=== PATIENT | female | born 1990 | race Caucasian/White ===

== ENCOUNTER 2016-05-05 15:59 | Emergency (ER) | payer BC ==
[~2016-05-05] VITALS: Ht 160 cm; Wt 119.9 kg
[~2016-05-05 15:59] MED LIST: APRE1TAB3 PO; ASPI81TA28 PO; CLOB0.0512 TOP; CZR25 PO; DXY50 PO; IMPLANON IMPLANT; METF-384 PO; PRLSR20 PO; [UNRECOGNIZED DRUG - CODE] TOP
[2016-05-05 16:20] VITALS: TEMP 37.1; Ht 160 cm; Wt 119.9 kg
--- NOTE | 2016-05-05 17:13 | DIAGNOSTIC IMAGING REPORT ---
CHEST 2 VIEWS ROUTINE CLINICAL HISTORY: cough dyspnea COMPARISON STUDY: 03/12/2016 FINDINGS: The bones soft tissues and hemidiaphragms are normal. The cardiomediastinal silhouette is normal. The lungs are clear. The pulmonary vasculature is normal. IMPRESSION: Negative chest. Electronically signed by: Ciaran Graham M.D. 05/05/2016 5:12 PM Dictated Date/Time: 05/05/2016 5:11 PM
[2016-05-05] MEDS ORDERED: ALBI1INJ PO (18:29)
[2016-05-05] MEDS ORDERED: ETON1IMP2 INTRAD (18:29)
[2016-05-05] MEDS ORDERED: GLCSR10 PO (18:29)
[2016-05-05] MEDS ORDERED: ALBUT/IPRATROP 3MG/0.5MG NEB 3 ML VIAL INH STA ×2 (18:44→19:59)
[2016-05-05] MEDS ORDERED: METHYLPREDNISOLONE 125 MG VIAL IV STA (18:44)
[2016-05-05 19:16] LABS: HEMATOCRIT 42.6 % (37-47); MEAN CELL VOLUME 80.7 fL (80-100); MEAN CORPUSCULAR HEMOGLOBIN 28.4 pg (25-34); MEAN CORPUSCULAR HGB CONC 35.2 g/dl (32-36); PLATELET COUNT 223 K/uL (130-400); RED BLOOD COUNT 5.28 M/uL (4.2-5.4); WHITE BLOOD COUNT 9.64 K/uL (4.8-10.8)
[2016-05-05 19:25] LABS: INR 0.9 (0.9-1.1); PROTHROMBIN TIME (PATIENT) 10.1 SECONDS (9.0-12.0)
[2016-05-05 19:32] LABS: CALCIUM 9.3 mg/dl (8.5-10.1); CREATININE 0.68 mg/dl (0.60-1.20); POTASSIUM 3.6 mmol/L (3.5-5.1)
[2016-05-05] MEDS ORDERED: IPRASOL4 INH (21:04)
[2016-05-05] MEDS ORDERED: PRED50TA PO (21:04)
--- NOTE | 2016-05-05 21:05 | EMERGENCY ROOM VISIT NOTE ---
ED Visit Note First contact with patient: 18:15 CHIEF COMPLAINT: Cough, wheezing and shortness of breath times several weeks HISTORY OF PRESENT ILLNESS: Patient is a 25-year-old white female with past medical history significant for hypertension, diabetes and asthma who presents to emergency department for evaluation of increased wheezing and shortness of breath. She states that she was here "one month ago" for similar symptoms and states that she never got better. Review of her old records actually show that she was here March 12 for influenza-like symptoms. Nonetheless, the patient reports that despite treatment recommended here she has had cough, congestion, wheezing and shortness of breath. She was seen at a [facility] last week and started on doxycycline. She is using an albuterol MDI 2 puffs every 4 hours, but notes worsening wheezing, and tightness and soreness across her back. She does not use any additional medications for her symptoms. She has not had a fever. She does have a history of asthma. She denies any anterior chest pain. She states that her cough is dry and nonproductive. The patient denies tobacco use. REVIEW OF SYSTEMS: Review of systems as per HPI. All other systems reviewed were negative. 10 systems reviewed. PMH: Electronic medical records are reviewed and summarized as above/below. See Problem List. SOCIAL HISTORY: Patient lives at home. Nonsmoker. PHYSICAL EXAM: Vital Signs: Reviewed Nurse's notes. Patient is afebrile. She is slightly tachycardic with heart rate of 120 beats per minute in triage, was rechecked at the time of exam is 108 beats per minute. Oxygen saturation between 94 and 96% on room air. MENTAL STATUS: Patient is a well-appearing obese 25-year-old white female who is awake and alert and in no acute distress. No increased work of breathing. No conversational dyspnea. HEAD: Atraumatic, without temporal or scalp tenderness. EYES: PERRL, EOMI, no discharge or injection. EARS: Tympanic membranes intact, not inflamed, have normal contour. External canals clear. NOSE: Nares patent, turbinates edematous and boggy with clear rhinorrhea. MOUTH: Mucous membranes moist, no lesions, tongue and gums appear normal. THROAT: No pharyngeal injection, exudates, or tonsillar hypertrophy. Airway is patent. NECK: Supple, nontender, no lymphadenopathy. HEART: Regular rate and rhythm without murmurs, ectopy, gallops, or rubs. LUNGS: Breath sounds are equal bilaterally, with expiratory wheezes noted posteriorly over both lung weathers. No accessory muscle use or retractions.. SKIN: Normal. NEUROLOGICAL: Sensory and motor functions grossly intact. Normal gait. EMERGENCY DEPARTMENT COURSE: The patient was seen and assessed as above. Her old records were reviewed. Chest x-ray had been performed prior to my evaluation the patient and was interpreted by the radiologist as unremarkable. IV lock was initiated. Laboratory studies were collected. She received a DuoNeb treatment 2. She was given Solu-Medrol 125 mg IV. EKG was performed and was as noted below. Laboratory studies including CBC, coags, BNP, point-of- care d-dimer and [id number] troponin were collected. EKG noted a normal sinus rhythm at 99 beats per minute. No ectopy or acute ischemic changes. No changes on review of prior EKGs. Laboratory studies did not demonstrate leukocytosis, anemia or significant electrolyte imbalance. Troponin is negative 1 with symptoms greater than 24 hours. Coags are normal and d-dimer was not elevated, given this, further workup for PE was not pursued. The patient was reassessed after the initial DuoNeb treatment and had slight improvement. She responded better to the second nebulizer treatment and lung sounds were much clearer. The patient appears to have a viral URI which has exacerbated her underlying asthma. She does not have any evidence for focal consolidation or pneumonia on exam. She is are the only course of antibiotics which she should continue. She has an albuterol inhaler, but was given a prescription for DuoNeb treatments as she does have access to a nebulizer machine. She was also placed on a short course of oral prednisone but was advised to follow-up closely with her primary care provider as this may cause her blood sugar should become transiently elevated. Differential diagnosis includes acute myocardial infarction, acute coronary syndrome, myocarditis, pericarditis, pericardial effusions /tamponade, esophageal perforation, pulmonary embolism, pneumonia, pneumothorax, cardiomyopathy, congestive heart failure, anemia , COPD/asthma exacerbation, musculoskeletal, anxiety, costochondritis. The patient was discharged home into the care of her significant other in good condition. Vital signs are stable at that time. CHEST 2 VIEWS ROUTINE CLINICAL HISTORY: cough dyspnea COMPARISON STUDY: 03/12/2016 FINDINGS: The bones soft tissues and hemidiaphragms are normal. The cardiomediastinal silhouette is normal. The lungs are clear. The pulmonary vasculature is normal. IMPRESSION: Negative chest. Problem List Medical Problems: (1) Abdominal pain, vomiting, and diarrhea Status: Resolved (2) Asthma Status: Chronic (3) Depressive Disorder Nec Status: Chronic (4) Diabetes Status: Chronic (5) Dog bite Status: Resolved (6) Dog bite of finger Status: Resolved (7) Esophageal Reflux Status: Chronic (8) Foot pain Status: Resolved (9) Heel spur Status: Resolved (10) Hypertension Status: Chronic (11) Influenza-like symptoms Status: Resolved (12) Laceration of third finger, right Status: Resolved (13) Plantar fasciitis Status: Resolved Surgical Problems: (1) History of wisdom tooth extraction Status: Resolved Current/Historical Medications Scheduled Albiglutide (Tanzeum), 30 MG PO WK Apremilast (Otezla), 30 MG PO BID Aspirin (Aspirin Ec), 81 MG PO DAILY Clobetasol Propionate (Clobex), 1 SPRAY TOP UD Clobetasol Propionate (Clobex), 1 APPLN TOP PRN UD Doxycycline Hyclate (Doxycycline Hyclate), 100 MG PO BID Etonogestrel (Nexplanon), 1 DOSE INTRAD [id number] Glipizide (Glipizide ER), 10 MG PO DAILY Losartan Potassium (Losartan Potassium), 25 MG PO DAILY Metformin Hcl (Glucophage), 1,000 MG PO BID Omeprazole (Prilosec), 40 MG PO DAILY Prednisone (Prednisone), 50 MG PO DAILY Scheduled PRN Ipratropium-Albuterol (Duoneb), 1 TREATMENT INH Q4H PRN for Wheezing Allergies Coded Allergies: No Known Allergies (Verified , 05/05/16) Vital Signs Date Time Temp Pulse Resp B/P Pulse Ox O2 Delivery O2 Flow Rate FiO2 05/05/16 21:13 110 20 115/89 93 05/05/16 19:14 114 05/05/16 19:06 100 20 123/84 100 Nebulizer 9.0 05/05/16 16:58 97 Room Air 05/05/16 16:20 37.1 120 20 177/99 96 Room Air Laboratory Results 05/05/16 18:55 05/05/16 18:55 Test 05/05/16 18:55 05/05/16 19:12 Red Blood Count 5.28 M/uL (4.2-5.4) Mean Corpuscular Volume 80.7 fL (80-100) Mean Corpuscular Hemoglobin 28.4 pg (25-34) Mean Corpuscular Hemoglobin Concent 35.2 g/dl (32-36) RDW Standard Deviation 38.0 fL (36.4-46.3) RDW Coefficient of Variation 12.9 % (11.5-14.5) Mean Platelet Volume 9.0 fL (7.4-10.4) Prothrombin Time 10.1 SECONDS (9.0-12.0) Prothromb Time International Ratio 0.9 (0.9-1.1) Activated Partial Thromboplast Time 24.8 SECONDS (21.0-31.0) Partial Thromboplastin Ratio 1.0 Anion Gap 12.0 mmol/L (3-11) Est Creatinine Clear Calc Drug Dose 157.1 ml/min Estimated GFR () 139.9 Estimated GFR (Non- 120.7 BUN/Creatinine Ratio 14.0 (10-20) Calcium Level 9.3 mg/dl (8.5-10.1) Bedside D-Dimer 167 ng/mlFEU (0-450) Bedside Troponin I 0.000 ng/ml (0-0.045) Medications Administered Medications (Trade) Dose Ordered Sig/Stephie Route Start Time Stop Time Status Last Admin Dose Admin Albuterol/ Ipratropium (Duoneb) 3 ml NOW STAT INH 05/05/16 18:44 05/05/16 18:46 DC 05/05/16 19:03 3 ML Methylprednisolone Sodium Succinate (Solu-Medrol IV) 125 mg NOW STAT IV 05/05/16 18:44 05/05/16 18:46 DC 05/05/16 19:03 125 MG Albuterol/ Ipratropium (Duoneb) 3 ml NOW STAT INH 05/05/16 19:59 05/05/16 20:00 DC 05/05/16 20:20 3 ML Departure Information Impression Primary Impression: Asthmatic bronchitis with acute exacerbation Prescriptions Ipratropium-Albuterol (DUONEB) 3 Ml Nebu 1 TREATMENT INH Q4H Y for Wheezing, #1 BOX Prov: Nikia Olivo PA 05/05/16 Prednisone (Prednisone) 50 Mg Tab 50 MG PO DAILY for 4 Days, #4 TAB Prov: Nikia Olivo PA 05/05/16 Referrals Kale Salgado M.D. (MEDICAL) (PCP) Patient Instructions My [facility] Additional Instructions Finished doxycycline as previously prescribed. Prednisone 50mg: Once daily until the prescription is finished. It is best to take this earlier in the day as some patients note occasional difficulty falling asleep when taken in the late evening. DuoNeb treatment: One by a bee and nebulizer every 4 hours as needed for cough, wheezing or shortness of breath. Ibuprofen(Motrin, Advil) may be used for fever or pain. Use 600mg every six hours as needed. Take with food. Avoid using more than 2400mg in a 24 hour period. Do not use 2400mg per day for more than three consecutive days without physician direction. Prolonged inappropriate use can lead to stomach upset or ulcers. This is available over the counter and typically comes in 200mg tablets. (AND/OR) Acetaminophen(Tylenol) may be used for fever or pain. Use 1000mg every eight hours as needed. Avoid using more than 3000mg in a 24 hour period. This is available over the counter. Controlling your fever with Tylenol and Ibuprofen as above will make you feel better. Rest and drink plenty of fluids. Avoid strenuous activity until your symptoms resolve and your breathing returns to normal. Continue current medications. Return to the ER for chest pain, difficulty breathing, persistent fevers, vomiting, worsening of your condition, or as needed. Follow-up with your primary care physician in 2-3 days for recheck.
[2016-05-05 21:13] VITALS: BP 115/89; PULSE 110; O2SAT 93
== END 2016-05-05 21:14 | disposition home or self-care (01) ==
LOC: C.EDB 16:00 → C.EDD 21:14
DX: J45.901 Unspecified asthma with (acute) exacerbation (principal); I10 Essential (primary) hypertension; E11.9 Type 2 diabetes mellitus without complications; K21.9 Gastro-esophageal reflux disease without esophagitis; Z79.82 Long term (current) use of aspirin; Z79.84 Long term (current) use of oral hypoglycemic drugs; Z79.899 Other long term (current) drug therapy

== ENCOUNTER 2019-12-13 07:22 | Inpatient (IN) ==
[2019-12-13] MEDS ORDERED: OXYTOCIN 30 UNITS/500 ML BAG IV PRN (09:28)
[2019-12-13] MEDS ORDERED: PENICILLIN G POTASSIUM 6 MU in DEXTROSE 5% 250 ML IV STA (09:39)
[2019-12-13] MEDS ORDERED: DINOPROSTONE 10 MG INSERT PV ONE (09:45)
--- NOTE | 2019-12-13 09:48 | Obstetrical Progress Note ---
Date of Service December 13, 2019 Assessment & Plan Admission and Anticipated Discharge Date Admission Date: December 13, 2019 Subjective Admit Note 29 F P1001 at 39.2 wks admitted for IOL for chronic hypertension, obesity, DM2 on insulin pump. Her GBS is positive and Covid is negative. FHT Cat 1. No contractions. Blood sugar this AM was 100. Sugars have been managed by her and MFM and have been OK. Last delivery over 10 years ago was uncomplicated. Cervix closed/50/-3/vertex/posterior/intact. Will start with cervical ripening with Cervidil. Results & Data ([facility]) Vital Signs (Past 12 Hours) Vital Signs Temp Pulse Resp BP 12/13/19 07:58 36.7 C 20 12/13/19 07:36 104 H 139/90
[2019-12-13 09:58] LABS: Hematocrit (blood only) 33.9 % (37-47); Hemoglobin 11.2 g/dL (12.0-16.0); Mean Corpuscular Hemoglobin 26.3 pg (25-34); Mean Corpuscular Volume 79.6 fL (80-100); Mean Platelet Volume 9.1 fL (7.4-10.4); Platelet Count 161 K/uL (130-400); RDW Coefficient of Variation 16.6 % (11.5-14.5); RDW Standard Deviation 47.8 fL (36.4-46.3); Red Blood Count 4.26 M/uL (4.2-5.4); White Blood Count 10.44 K/uL (4.8-10.8)
--- NOTE | 2019-12-13 10:12 | Obstetrical Progress Note ---
Date of Service December 13, 2019 Assessment & Plan Admission and Anticipated Discharge Date Admission Date: December 13, 2019 Physical Exam Constitutional: WD/WN, vitals as above comfortable Cervidil 10 mg placed vaginally Results & Data ([facility]) Vital Signs (Past 12 Hours) Vital Signs Temp Pulse Resp BP 12/13/19 07:58 36.7 C 20 12/13/19 07:36 104 H 139/90
[2019-12-13] MEDS ORDERED: Nursing to Pharmacy Communication SCH (18:15)
[2019-12-13] MEDS ORDERED: GLUCOSE 40% GEL 15 GM TUBE PO PRN (18:45)
[2019-12-13] MEDS ORDERED: CARBOHYDRATES FOR HYPOGLYCEMIA PO PRN (18:45)
[2019-12-13] MEDS ORDERED: INSULIN HUMAN REGULAR SC PRN (18:45)
[2019-12-13] MEDS ORDERED: HumuLIN-R 10 ML VIAL SC PRN (18:45)
[2019-12-13] MEDS ORDERED: DEXTROSE 50% 50 ML SYRINGE IV PRN (18:45)
[2019-12-13] MEDS ORDERED: GLUCAGON FOR INJ 1 MG VIAL SQ PRN (18:45)
[2019-12-13] MEDS ORDERED: GLUCOSE 10 TABS/TUBE PO PRN (18:45)
[2019-12-13] MEDS: LABETALOL HCL 100 MG TAB PO SCH (21:00)
[2019-12-13] MEDS ORDERED: INSULIN REGULAR PUMP SCH (21:00)
--- NOTE | 2019-12-13 22:29 | Obstetrical Progress Note ---
Date of Service December 13, 2019 Assessment & Plan Admission and Anticipated Discharge Date Admission Date: December 13, 2019 Physical Exam Constitutional: WD/WN, vitals as above comfortable Genitourinary: Manual OB Exam: + cervical dilation fingertip, + cervical effacement 50% and + station high OB Exam Monitor Tracing: + external FHT monitor used and + external uterine monitor used Cervidil pulled out will start PO Cytotec every 4 hours Results & Data ([facility]) Vital Signs (Past 12 Hours) Vital Signs Temp Pulse Resp BP 12/13/19 19:29 89 123/67 12/13/19 19:28 37.0 C 18 12/13/19 14:47 85 143/83 H 12/13/19 14:44 36.7 C 16 12/13/19 10:55 36.7 C 86 20 122/80
[2019-12-14] MEDS: miSOPROStoL 50 MCG TAB PO SCH ×3 (00:02→20:34)
[2019-12-14] MEDS ORDERED: OXYTOCIN 30 UNITS/500 ML BAG IV PRN (08:32)
--- NOTE | 2019-12-14 08:32 | Obstetrical Progress Note ---
Date of Service December 14, 2019 Assessment & Plan Admission and Anticipated Discharge Date Admission Date: December 13, 2019 Subjective Pt doing well Induction for obesity received Cytotec and Cervidil VE; /post/ kilpatrick bulb place in cervix with 30 cc Starting Pitocin Results & Data ([facility]) Vital Signs (Past 12 Hours) Vital Signs Temp Pulse Resp BP 12/14/19 07:03 37.1 C 89 20 134/72 12/14/19 03:20 36.5 C 76 16 121/72 12/13/19 23:44 36.7 C 85 16 130/71
[2019-12-14] MEDS: LACTATED RINGER'S 1,000 ML IV PRN ×3 (08:58→23:27)
[2019-12-14] MEDS: LABETALOL HCL 100 MG TAB PO SCH ×2 (09:07→20:36)
[2019-12-14] MEDS ORDERED: ePHEDrine sulfate 50 MG/ML AMP IV PRN (15:41)
[2019-12-14] MEDS ORDERED: fentaNYL citrate 100 MCG/2 ML VIAL ONE (15:41)
[2019-12-14] MEDS ORDERED: ONDANSETRON INJ 2 MG/ML 2 ML VIAL IV PRN (15:41)
[2019-12-14] MEDS ORDERED: BUPIVACAINE 0.25% 30 ML VIAL ONE (15:41)
[2019-12-14] MEDS ORDERED: ePHEDrine sulfate 50 MG/ML AMP ONE (15:41)
[2019-12-14] MEDS ORDERED: DiphenhydrAMINE HCL 50 MG/ML VIAL IV PRN (15:41)
[2019-12-14] MEDS ORDERED: NALOXONE HCL 1 MG in SODIUM CHLORIDE 0.9% 1000ML 1,000 ML IV PRN (15:41)
[2019-12-14] MEDS ORDERED: NALOXONE HCL 0.4 MG/1 ML VIAL/CARP IV PRN (15:41)
[2019-12-14] MEDS ORDERED: PROMETHAZINE HCL 25 MG in SODIUM CHLORIDE 0.9% 50 ML IV PRN (15:41)
--- NOTE | 2019-12-14 15:41 | Anesthesiology Consultation ---
Date of Service December 14, 2019 Assessment & Plan ASA ASA3 Proposed Anesthesia Anesthesia Type: Labor Epidural Risk / Benefits Reviewed With: PT / POA / Parent / Guardian, Accepts Plan and Informed Consent Obtained History Height/Weight Height: 5 ft 3 in Weight: 159.211 kg Allergies Allergy/AdvReac Type Severity Reaction Status Date / Time No Known Allergies Allergy Verified 10/05/18 22:12 Medications Home Medications Medication Instructions Recorded Confirmed Last Taken clobetasol [Clobex] 1 applic TOPICAL BID PRN 10/05/18 12/13/19 Unknown clobetasol [Clobex] 1 applic TOPICAL DAILY PRN 10/05/18 12/13/19 Unknown fluticasone propionate 2 spray INTRANASAL DAILY PRN 10/05/18 12/13/19 Unknown ipratropium bromide [Atrovent HFA] 1 puff INHALATION QID PRN 10/05/18 12/13/19 Unknown labetalol 100 mg PO BID 10/05/18 12/13/19 12/13/19 06:00 metformin 1,000 mg PO BID 10/05/18 12/13/19 12/13/19 06:00 albuterol See Rx Instructions .ROUTE 12/13/19 12/13/19 Unknown .COMPLEX PRN aspirin [Baby Aspirin] 81 mg PO DAILY 12/13/19 12/13/19 12/12/19 22:00 cyanocobalamin (vitamin B-12) 1,000 mcg SUBLINGUAL DAILY 12/13/19 12/13/19 12/13/19 06:00 [Vitamin B-12] ferrous sulfate [iron] 325 mg PO BID 12/13/19 12/13/19 12/13/19 06:00 insulin regular human [Novolin R 2.2 unit SUBCUT BOLUS 12/13/19 12/13/19 12/13/19 06:00 PenFill] prenat.vits,rosas,[id number] 1 tab PO DAILY 12/13/19 12/13/19 12/13/19 06:00 [ Vitamin] Active Medications Generic Name Dose Route Start Last Admin Trade Name Freq PRN Reason Stop Dose Admin Lactated Ringer's 1,000 mls @ 125 mls/hr 12/13/19 09:28 12/14/19 15:55 Lr IV 12/15/19 09:27 999 mls/hr .Q8H PRN Administration L&D Protocol Protocol Penicillin G Potassium 3 mu/ 106 mls @ 100 mls/hr 12/13/19 09:28 12/14/19 16:14 Dextrose IV 12/23/19 09:27 100 mls/hr Q4H PRN Administration Give until delivery Oxytocin 30 units in 500 mls @ 16 mls/hr 12/14/19 08:32 12/14/19 14:15 Pitocin IV 01/13/20 08:31 0.96 units/hr .Q24H PRN 16 mls/hr Labor Induction/Augmentation Titration Protocol 0.96 UNITS/HR Labetalol HCl 100 mg 12/13/19 21:00 12/14/19 09:07 Labetalol Hcl 100 Mg Tab PO 01/12/20 20:59 Not Given BID JUAN M Misoprostol 50 mcg 12/14/19 00:00 12/14/19 04:26 Misoprostol 50 Mcg Tab PO 01/13/20 00:00 50 mcg Q4 JUAN M Administration Past Medical History Medical History Anxiety No medications Asthma Inhalers PRN Chronic hypertension Patient currently takes PO Labetalol Depression No medications. Patient reports no problems with anxiet or depression during . Diabetes Type II DM - Currently takes Metformin and has an Insulin Pump - Novolin R Fatty liver GERD (gastroesophageal reflux disease) Tums Obesity Sleep apnea Patient uses CPAP machine at night. (spontaneous vaginal delivery) 05/22/2009 Exercise / Class Metabolic Activity II 4-5 Yardwork/Stairs/Walk up hill Past Family History Family History Other No significant family history Past Surgical History Surgical History History of endoscopic sinus surgery [place] teeth extracted Past Anesthesia History No Hx of Anesthesia Complications and No Family Hx of Anesthesia Complications History of PONV No Hx of PONV and No Hx of Motion Sickness Social History Smoking Status: Former smoker Do You Dip or Chew Tobacco: No Smoking End Date: 11/2014 Hx Alcohol Use: No Hx Substance Use: No Review of Systems denies fever/cough/ colds/ chest pain/ SOB/ KAREEM Constitutional: no fever and no chills Respiratory: no cough and no dyspnea denies KAREEM Cardiovascular: no chest pain and no dyspnea on exertion Physical Exam Vital Signs Last Vital Signs Temp 36.8 C 12/14/19 11:03 Pulse 75 12/14/19 16:22 Resp 18 12/14/19 14:08 BP 144/94 H 12/14/19 16:19 Pulse Ox 97 12/14/19 16:22 Constitutional + morbidly obese ENMT Mouth: no TMJ abnormality and no dentition abnormality Thyromental Distance: > or= 3.5 Finger Breadths Mallampati Class: II Neck neck extension not limited Respiratory normal respiratory effort; no respiratory distress Auscultation: lungs clear to auscultation bilaterally Cardiovascular Rate/Rhythm: regular rate and regular rhythm Neurologic moves all extremities Psychiatric Orientation: alert and oriented x 3 Testing Laboratory Results 12/13/19 09:43
[2019-12-14] MEDS ORDERED: fentaNYL 2MCG/ML ROPIV 1.25MG/ML 100 ML BAG EPI ONE (15:42)
[2019-12-14] MEDS: PENICILLIN G POTASSIUM 3 MU in DEXTROSE 5% 100 ML IV PRN ×3 (16:14→23:58)
--- NOTE | 2019-12-14 19:42 | Obstetrical Progress Note ---
Date of Service December 14, 2019 Assessment & Plan Admission and Anticipated Discharge Date Admission Date: December 13, 2019 Subjective Pt doing well FHR; CAT1 Ctx 2-3mins Pit 18Mu VE; 2-3/75/-[address] Attempted to AROM but pt was too uncomfortable despite epidural Results & Data ([facility]) Vital Signs (Past 12 Hours) Vital Signs Temp Pulse Resp BP Pulse Ox 12/14/19 19:37 71 99 12/14/19 19:36 96 H 161/70 H 12/14/19 19:32 83 100 12/14/19 19:27 75 99 12/14/19 19:22 72 99 12/14/19 19:19 71 140/85 12/14/19 19:17 72 100 12/14/19 19:12 74 99 12/14/19 19:07 36.9 C 78 18 99 12/14/19 19:05 76 141/87 H 12/14/19 19:02 73 99 12/14/19 18:57 71 98 12/14/19 18:52 75 99 12/14/19 18:50 68 147/85 H 12/14/19 18:47 71 97 12/14/19 18:42 73 98 12/14/19 18:37 75 97 12/14/19 18:34 71 131/71 12/14/19 18:32 69 97 12/14/19 18:27 68 96 12/14/19 18:25 66 94 12/14/19 18:22 66 96 12/14/19 18:19 68 130/71 12/14/19 18:17 63 96 12/14/19 18:12 71 96 12/14/19 18:07 69 96 12/14/19 18:04 70 18 127/68 12/14/19 18:02 69 96 12/14/19 17:57 73 96 12/14/19 17:52 70 97 12/14/19 17:50 70 131/75 12/14/19 17:47 69 96 12/14/19 17:42 75 96 12/14/19 17:37 73 95 12/14/19 17:34 75 18 126/71 12/14/19 17:32 75 96 12/14/19 17:27 71 97 12/14/19 17:22 85 97 12/14/19 17:19 76 156/98 H 12/14/19 17:17 87 96 12/14/19 17:12 75 96 12/14/19 17:07 77 97 12/14/19 17:04 71 16 143/90 H 12/14/19 17:02 74 96 12/14/19 16:57 77 95 12/14/19 16:52 71 96 12/14/19 16:47 70 97 12/14/19 16:46 74 155/91 H 12/14/19 16:42 75 96 12/14/19 16:39 74 157/94 H 12/14/19 16:37 76 96 12/14/19 16:34 85 156/91 H 12/14/19 16:32 89 98 12/14/19 16:31 76 163/87 H 12/14/19 16:27 86 98 12/14/19 16:24 73 148/91 H 12/14/19 16:22 75 97 12/14/19 16:19 73 144/94 H 12/14/19 16:17 78 100 12/14/19 16:14 81 152/92 H 12/14/19 16:12 80 156/79 H 99 12/14/19 16:10 79 144/101 H 12/14/19 16:08 71 154/96 H 12/14/19 16:07 70 100 12/14/19 16:06 80 154/93 H 12/14/19 16:04 36.7 C 71 18 147/91 H 12/14/19 16:02 88 99 12/14/19 15:57 79 100 12/14/19 14:08 100 H 18 135/86 12/14/19 13:06 78 20 154/91 H 12/14/19 12:01 78 20 139/82 12/14/19 11:03 36.8 C 78 20 144/88 H 12/14/19 10:24 74 20 134/69 12/14/19 09:03 85 20 124/58 L
[2019-12-14] MEDS ORDERED: Nursing to Pharmacy Communication SCH (21:30)
[2019-12-14] MEDS: fentaNYL 2MCG/ML ROPIV 1.25MG/ML 100 ML BAG EPI PRN (22:06)
--- NOTE | 2019-12-14 23:23 | Obstetrical Progress Note ---
Date of Service December 14, 2019 Assessment & Plan Admission and Anticipated Discharge Date Admission Date: December 13, 2019 Subjective Pt doing well FHR; CAT1 VE 2-3/50/-3 Ctx; 2-3mis Pit; 20Mu Pt tolerated exam poorly- Unable to AROM because of discomfort Pitocin turned off for now Results & Data ([facility]) Vital Signs (Past 12 Hours) Vital Signs Temp Pulse Resp BP Pulse Ox 12/14/19 23:17 76 98 12/14/19 23:12 80 97 12/14/19 23:07 79 98 12/14/19 23:04 70 135/71 12/14/19 23:02 72 97 12/14/19 22:57 76 97 12/14/19 22:52 73 95 12/14/19 22:49 82 132/66 12/14/19 22:47 74 96 12/14/19 22:42 74 96 12/14/19 22:37 91 H 98 12/14/19 22:34 74 129/67 12/14/19 22:32 76 96 12/14/19 22:27 74 96 12/14/19 22:22 72 96 12/14/19 22:20 73 136/72 12/14/19 22:17 84 96 12/14/19 22:12 80 96 12/14/19 22:07 76 97 12/14/19 22:04 75 137/73 12/14/19 22:02 97 H 98 12/14/19 21:57 75 96 12/14/19 21:52 74 96 12/14/19 21:49 73 18 126/69 12/14/19 21:47 72 97 12/14/19 21:42 73 96 12/14/19 21:37 76 96 12/14/19 21:36 73 134/76 12/14/19 21:32 75 96 12/14/19 21:27 77 97 12/14/19 21:24 37.1 C 18 12/14/19 21:22 73 98 12/14/19 21:19 74 136/82 12/14/19 21:17 76 98 12/14/19 21:15 82 89 L 12/14/19 21:12 96 H 96 12/14/19 21:07 74 98 12/14/19 21:05 70 143/88 H 12/14/19 21:02 73 96 12/14/19 20:57 79 97 12/14/19 20:52 81 97 12/14/19 20:50 71 143/81 H 12/14/19 20:47 80 98 12/14/19 20:42 86 97 12/14/19 20:37 78 98 12/14/19 20:34 86 138/84 12/14/19 20:32 76 99 12/14/19 20:27 79 100 12/14/19 20:22 84 100 12/14/19 20:19 75 124/76 12/14/19 20:17 73 100 12/14/19 20:12 86 100 12/14/19 20:07 83 99 12/14/19 20:04 70 136/76 12/14/19 20:02 72 99 12/14/19 19:57 72 99 12/14/19 19:52 74 99 12/14/19 19:50 68 18 146/79 H 12/14/19 19:47 66 100 12/14/19 19:42 72 99 12/14/19 19:37 71 99 12/14/19 19:36 96 H 161/70 H 12/14/19 19:32 83 100 12/14/19 19:27 75 99 12/14/19 19:22 72 99 12/14/19 19:19 71 140/85 12/14/19 19:17 72 100 12/14/19 19:12 74 99 12/14/19 19:07 36.9 C 78 18 99 12/14/19 19:05 76 141/87 H 12/14/19 19:02 73 99 12/14/19 18:57 71 98 12/14/19 18:52 75 99 12/14/19 18:50 68 147/85 H 12/14/19 18:47 71 97 12/14/19 18:42 73 98 12/14/19 18:37 75 97 12/14/19 18:34 71 131/71 12/14/19 18:32 69 97 12/14/19 18:27 68 96 12/14/19 18:25 66 94 12/14/19 18:22 66 96 12/14/19 18:19 68 130/71 12/14/19 18:17 63 96 12/14/19 18:12 71 96 12/14/19 18:07 69 96 12/14/19 18:04 70 18 127/68 12/14/19 18:02 69 96 12/14/19 17:57 73 96 12/14/19 17:52 70 97 12/14/19 17:50 70 131/75 12/14/19 17:47 69 96 12/14/19 17:42 75 96 12/14/19 17:37 73 95 12/14/19 17:34 75 18 126/71 12/14/19 17:32 75 96 12/14/19 17:27 71 97 12/14/19 17:22 85 97 12/14/19 17:19 76 156/98 H 12/14/19 17:17 87 96 12/14/19 17:12 75 96 12/14/19 17:07 77 97 12/14/19 17:04 71 16 143/90 H 12/14/19 17:02 74 96 12/14/19 16:57 77 95 12/14/19 16:52 71 96 12/14/19 16:47 70 97 12/14/19 16:46 74 155/91 H 12/14/19 16:42 75 96 12/14/19 16:39 74 157/94 H 12/14/19 16:37 76 96 12/14/19 16:34 85 156/91 H 12/14/19 16:32 89 98 12/14/19 16:31 76 163/87 H 12/14/19 16:27 86 98 12/14/19 16:24 73 148/91 H 12/14/19 16:22 75 97 12/14/19 16:19 73 144/94 H 12/14/19 16:17 78 100 12/14/19 16:14 81 152/92 H 12/14/19 16:12 80 156/79 H 99 12/14/19 16:10 79 144/101 H 12/14/19 16:08 71 154/96 H 12/14/19 16:07 70 100 12/14/19 16:06 80 154/93 H 12/14/19 16:04 36.7 C 71 18 147/91 H 12/14/19 16:02 88 99 12/14/19 15:57 79 100 12/14/19 14:08 100 H 18 135/86 12/14/19 13:06 78 20 154/91 H 12/14/19 12:01 78 20 139/82
[2019-12-15] MEDS: miSOPROStoL 50 MCG TAB PO SCH ×4 (00:28→14:43)
[2019-12-15] MEDS: PENICILLIN G POTASSIUM 3 MU in DEXTROSE 5% 100 ML IV PRN ×2 (03:57→07:41)
[2019-12-15] MEDS: fentaNYL 2MCG/ML ROPIV 1.25MG/ML 100 ML BAG EPI PRN (04:44)
[2019-12-15] MEDS ORDERED: CITRIC ACID/SODIUM CITRATE 15 ML UDC PO SCH (06:00)
[2019-12-15] MEDS: LABETALOL HCL 100 MG TAB PO SCH ×2 (08:44→21:08)
[2019-12-15] MEDS ORDERED: BUPIVACAINE 0.25% 30 ML VIAL ONE (08:48)
--- NOTE | 2019-12-15 09:00 | History & Physical Report ---
Date of Service December 15, 2019 Assessment & Plan (1) Morbid obesity with BMI of 50.0-59.9, adult: (2) Elective induction of labor planned: 29-year-old -0-0-1 at 39 weeks and 4 days of gestation, induction of labor since December 12, status post cervical ripening with Cytotec and Ce rvidil, Beremo balloon and Pitocin since yesterday morning. Vital signs stable afebrile, heart rate reassuring History of type 2 diabetes, on insulin pump, good glucose control Estimated weight was 3040 gr on November 17 percentile. History of chronic hypertension, on labetalol GBS positive, on penicillin SROM this morning with clear fluid Unable to monitor contractions externally due to body habitus, patient is uncomfortable during exam. Plan to consult anesthesiology for epidural recheck and we will attempt IUPC to monitor contractions and adjust Pitocin dose. All questions were answered. (3) GBS (group B Streptococcus carrier), +RV culture, currently : Admission and Anticipated Discharge Date Admission Date: December 13, 2019 History of Present Illness Primary Care Provider: Destinee Bernal, DO 29 yo at 39 weeks and 4 days of gestation who was admitted on December 12 for induction of labor at term, due to history of type 2 diabetes before , chronic hypertension, morbid obesity. Cervical ripening was done on December 12 with Cervidil and Cytotec. Bermeo bulb was placed and Pitocin was started yesterday morning. She has been on Pitocin since 9 AM yesterday. Bermeo bulb came out soon after the placement. AROM was attempted by Dr. OLMSTEAD last night and this morning but was unable due to high station of head and patient discomfort. I think this morning and reviewed her chart in details, when I entered the room patient felt a gush of fluid leaking. It was confirmed with nitrazine paper and vaginal exam. And it was clear. Her cervix is now 3 to 4 cm dilated, 50% effaced and head is at -5 station, very high. She was uncomfortable during exam. Estimated weight was 304 0 g on November 17 percentile. Her was complicated by 1) type 2 diabetes before , she was on metformin and insulin before , she has been on insulin pump since the beginning of this . 2)chronic hypertension, on labetalol 3) morbid obesity, pre- BMI was 59.5 4) asthma, patient is on inhaler as needed 5) sleep apnea, patient is on CPAP at night 6) history of depression, currently not on meds 7)history of fatty liver disease 8) GBS carrier, on penicillin. Allergies Allergy/AdvReac Type Severity Reaction Status Date / Time No Known Allergies Allergy Verified 10/05/18 22:12 Home Medications Home Medications Medication Instructions Recorded Confirmed Type clobetasol [Clobex] 1 applic TOPICAL BID PRN 10/05/18 12/13/19 History clobetasol [Clobex] 1 applic TOPICAL DAILY PRN 10/05/18 12/13/19 History fluticasone propionate 2 spray INTRANASAL DAILY PRN 10/05/18 12/13/19 History ipratropium bromide [Atrovent HFA] 1 puff INHALATION QID PRN 10/05/18 12/13/19 History labetalol 100 mg PO BID 10/05/18 12/13/19 History metformin 1,000 mg PO BID 10/05/18 12/13/19 History albuterol See Rx Instructions .ROUTE 12/13/19 12/13/19 History .COMPLEX PRN aspirin [Baby Aspirin] 81 mg PO DAILY 12/13/19 12/13/19 History cyanocobalamin (vitamin B-12) 1,000 mcg SUBLINGUAL DAILY 12/13/19 12/13/19 History [Vitamin B-12] ferrous sulfate [iron] 325 mg PO BID 12/13/19 12/13/19 History insulin regular human [Novolin R 2.2 unit SUBCUT BOLUS 12/13/19 12/13/19 History PenFill] prenat.vits,rosas,zba-gnii-csfed 1 tab PO DAILY 12/13/19 12/13/19 History [ Vitamin] Patient History Medical History Anxiety No medications Asthma Inhalers PRN Chronic hypertension Patient currently takes PO Labetalol Depression No medications. Patient reports no problems with anxiet or depression during . Diabetes Type II DM - Currently takes Metformin and has an Insulin Pump - Novolin R Fatty liver GERD (gastroesophageal reflux disease) Tums Obesity Sleep apnea Patient uses CPAP machine at night. 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 Required: No Beliefs That Will Affect Care: None marital status: Current Living Situation Comment: Lives with , daughter, sister, and [id number] Other Information That Helps Us Care for You: No Feels Safe at Home: Yes Safety Concerns: Feels Safe At This Time Assistive Devices: None OB History Full-term in 2009, baby was a viable female, 7 pounds 15 ounces [employer]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 Genitourinary: normal external appearance Manual OB Exam: + cervical dilation 3 cm, + cervical effacement 50% and + station high OB Exam Monitor Tracing: + external uterine monitor used and + category I Results & Data ([facility]) Vital Signs (Past 12 Hours) Vital Signs Temp Pulse Resp BP Pulse Ox 12/15/19 08:42 84 97 12/15/19 08:37 84 96 12/15/19 08:35 73 122/62 12/15/19 08:32 79 98 12/15/19 08:27 73 96 12/15/19 08:22 90 98 12/15/19 08:19 75 149/86 H 12/15/19 08:17 79 97 12/15/19 08:12 80 100 12/15/19 08:07 78 98 12/15/19 08:04 80 142/75 H 12/15/19 08:02 79 97 12/15/19 07:57 80 95 12/15/19 07:52 81 98 12/15/19 07:51 80 140/73 12/15/19 07:47 74 97 12/15/19 07:42 80 98 12/15/19 07:37 80 96 12/15/19 07:34 88 134/72 12/15/19 07:32 87 97 12/15/19 07:31 36.9 C 20 12/15/19 07:27 87 98 12/15/19 07:22 75 97 12/15/19 07:17 84 96 12/15/19 07:12 89 97 12/15/19 07:07 79 97 12/15/19 07:04 93 H 135/69 12/15/19 07:02 87 98 12/15/19 06:57 86 97 12/15/19 06:52 77 97 12/15/19 06:49 78 106/57 L 12/15/19 06:47 83 96 12/15/19 06:42 82 96 12/15/19 06:37 80 96 12/15/19 06:34 80 117/68 12/15/19 06:32 86 97 12/15/19 06:27 86 97 12/15/19 06:22 88 97 12/15/19 06:19 76 119/74 12/15/19 06:17 92 H 99 12/15/19 06:12 83 96 12/15/19 06:07 73 97 12/15/19 06:04 68 126/73 12/15/19 06:02 86 97 12/15/19 05:57 74 96 12/15/19 05:52 75 97 12/15/19 05:50 76 126/73 12/15/19 05:47 76 96 12/15/19 05:42 79 96 12/15/19 05:37 76 96 12/15/19 05:35 73 123/60 12/15/19 05:32 76 96 12/15/19 05:27 74 97 12/15/19 05:22 78 96 12/15/19 05:19 76 114/62 12/15/19 05:17 74 96 12/15/19 05:12 76 96 12/15/19 05:07 78 96 12/15/19 05:05 74 115/61 12/15/19 05:02 70 96 12/15/19 04:57 69 96 12/15/19 04:52 74 96 12/15/19 04:49 82 129/71 12/15/19 04:47 75 98 12/15/19 04:42 73 97 12/15/19 04:37 75 96 12/15/19 04:36 73 18 116/64 12/15/19 04:32 75 96 12/15/19 04:27 72 96 12/15/19 04:22 73 96 12/15/19 04:19 77 121/69 12/15/19 04:17 73 97 12/15/19 04:12 73 98 12/15/19 04:07 36.7 C 75 18 99 12/15/19 04:04 74 131/73 12/15/19 04:02 74 98 12/15/19 03:57 83 95 12/15/19 03:52 82 97 12/15/19 03:49 67 133/74 12/15/19 03:47 69 95 12/15/19 03:42 72 95 12/15/19 03:37 72 94 12/15/19 03:35 74 131/73 12/15/19 03:34 76 94 12/15/19 03:32 70 97 12/15/19 03:27 69 96 12/15/19 03:22 80 98 12/15/19 03:20 71 123/74 12/15/19 03:17 70 96 12/15/19 03:12 78 98 12/15/19 03:07 80 96 12/15/19 03:04 76 137/91 12/15/19 03:02 71 96 12/15/19 02:57 72 97 12/15/19 02:52 81 97 12/15/19 02:49 71 124/68 12/15/19 02:47 72 97 12/15/19 02:45 36.9 C 18 12/15/19 02:42 81 96 12/15/19 02:37 77 98 12/15/19 02:34 65 119/64 12/15/19 02:32 71 97 12/15/19 02:27 69 97 12/15/19 02:22 69 97 12/15/19 02:19 68 106/55 L 12/15/19 02:17 69 97 12/15/19 02:12 69 97 12/15/19 02:07 69 97 12/15/19 02:05 70 120/65 12/15/19 02:02 82 98 12/15/19 01:57 70 97 12/15/19 01:52 72 98 12/15/19 01:50 74 110/59 L 12/15/19 01:47 74 96 12/15/19 01:42 76 96 12/15/19 01:37 74 96 12/15/19 01:34 73 110/56 L 12/15/19 01:32 73 96 12/15/19 01:27 71 96 12/15/19 01:22 69 96 12/15/19 01:19 68 118/56 L 12/15/19 01:17 70 97 12/15/19 01:12 72 96 12/15/19 01:07 72 97 12/15/19 01:04 71 113/59 L 12/15/19 01:02 75 97 12/15/19 00:57 77 96 12/15/19 00:52 89 97 12/15/19 00:50 75 116/59 L 12/15/19 00:47 75 96 12/15/19 00:42 72 96 12/15/19 00:37 74 96 12/15/19 00:36 70 122/70 12/15/19 00:32 69 97 12/15/19 00:27 70 96 12/15/19 00:22 68 96 12/15/19 00:19 67 124/60 12/15/19 00:17 71 96 12/15/19 00:12 74 96 12/15/19 00:07 71 96 12/15/19 00:04 72 126/69 12/15/19 00:02 73 97 12/15/19 00:00 37.0 C 18 12/14/19 23:57 68 96 12/14/19 23:52 67 97 12/14/19 23:49 71 127/73 12/14/19 23:47 66 97 12/14/19 23:42 68 96 12/14/19 23:37 73 96 12/14/19 23:35 67 126/74 12/14/19 23:32 72 96 12/14/19 23:27 71 96 12/14/19 23:22 76 97 12/14/19 23:19 76 18 136/69 12/14/19 23:17 76 98 12/14/19 23:12 80 97 12/14/19 23:07 79 98 12/14/19 23:04 70 135/71 12/14/19 23:02 72 97 12/14/19 22:57 76 97 12/14/19 22:52 73 95 12/14/19 22:49 82 132/66 12/14/19 22:47 74 96 12/14/19 22:42 74 96 12/14/19 22:37 91 H 98 12/14/19 22:34 74 129/67 12/14/19 22:32 76 96 12/14/19 22:27 74 96 12/14/19 22:22 72 96 12/14/19 22:20 73 136/72 12/14/19 22:17 84 96 12/14/19 22:12 80 96 12/14/19 22:07 76 97 12/14/19 22:04 75 137/73 12/14/19 22:02 97 H 98 12/14/19 21:57 75 96 12/14/19 21:52 74 96 12/14/19 21:49 73 18 126/69 12/14/19 21:47 72 97 12/14/19 21:42 73 96 12/14/19 21:37 76 96 12/14/19 21:36 73 134/76 12/14/19 21:32 75 96 12/14/19 21:27 77 97 12/14/19 21:24 37.1 C 18 12/14/19 21:22 73 98 12/14/19 21:19 74 136/82 12/14/19 21:17 76 98 12/14/19 21:15 82 89 L 12/14/19 21:12 96 H 96 12/14/19 21:07 74 98 12/14/19 21:05 70 143/88 H 12/14/19 21:02 73 96 12/14/19 20:57 79 97 12/14/19 20:52 81 97 12/14/19 20:50 71 143/81 H 12/14/19 20:47 80 98
[2019-12-15 09:44] LABS: Basophils # (auto) 0.01 K/uL (0-0.2); Basophils % (auto) 0.1 %; Eosinophils % (auto) 0.8 %; Hematocrit (blood only) 35.4 % (37-47); Hemoglobin 11.9 g/dL (12.0-16.0); Immature Granulocytes # (auto) 0.04 K/uL (0.00-0.02); Immature Granulocytes % (auto) 0.3 %; Lymphocytes # (auto) 1.52 K/uL (1.2-3.4); Lymphocytes % (auto) 12.8 %; Mean Corpuscular Hemoglobin 26.6 pg (25-34); Mean Corpuscular Hgb Conc 33.6 g/dL (32-36); Monocytes # (auto) 0.49 K/uL (0.11-0.59); Monocytes % (auto) 4.1 %; Neutrophils # (auto) 9.67 K/uL (1.4-6.5); Neutrophils % (auto) 81.9 %; Platelet Count 162 K/uL (130-400); RDW Coefficient of Variation 16.2 % (11.5-14.5); RDW Standard Deviation 46.8 fL (36.4-46.3); Red Blood Count 4.48 M/uL (4.2-5.4); White Blood Count 11.83 K/uL (4.8-10.8)
[2019-12-15 09:58] LABS: Albumin Level 2.2 gm/dl (3.4-5.0); BUN Creatinine Ratio 10.7 (10-20); Creatinine Clr Calc Pharmacy 196.1 ml/min; Est GFR (African American) 139.5; Est GFR (Non-African American) 120.4
[2019-12-15 10:01] LABS: Albumin Globulin Ratio 0.5 (0.9-2); Bilirubin,Total 0.8 mg/dl (0.2-1); Globulin 4.1 gm/dl (2.5-4.0); Total Protein 6.3 gm/dl (6.4-8.2)
[2019-12-15] MEDS ORDERED: MoRPHine SULFATE PF 1 MG/ML 10 ML AMP/VIAL ONE (10:12)
[2019-12-15] MEDS ORDERED: AZITHROMYCIN 500 MG in DEXTROSE 5% 250 ML IV STA (10:21)
[2019-12-15] MEDS ORDERED: CITRIC ACID/SODIUM CITRATE 15 ML UDC ONE (10:22)
--- NOTE | 2019-12-15 10:25 | Obstetrical Progress Note ---
Date of Service December 15, 2019 Assessment & Plan Admission and Anticipated Discharge Date Admission Date: December 13, 2019 Subjective Patient is reevaluated. She received bolus from epidural which has not helped for her pain. She complains of severe pain and crying with each contractions. Patient states she is exhausted and she is done. Plan was to place IUPC and continue with Pitocin as required adjusted dose better. Cervix is 4 cm dilated 60% effaced cholesterol high at -4 station Cone- shaped. Clear amniotic fluid is leaking. Patient is unable to tolerate IUPC placement. Contractions were palpated manually she has strong contractions every 2 to 3 minutes. We discussed with the patient about redoing epidural placing a increasing continue with induction. Patient states she does not want to try for induction anymore she wants to deliver her baby now received . We discussed the risk of is a major surgery including but not limited to bleeding infection, injury to surr ounding organs like bowels bladder ureter, blood clots in legs or lungs , scarring/ adhesions and longer recovery. She understands all and she wants to proceed with primary . All questions were answered. Results & Data ([facility]) Vital Signs (Past 12 Hours) Vital Signs Temp Pulse Resp BP Pulse Ox 12/15/19 10:19 76 137/74 12/15/19 10:12 80 98 12/15/19 10:07 90 97 12/15/19 10:05 96 H 138/77 12/15/19 10:02 84 98 12/15/19 09:57 83 98 12/15/19 09:56 87 91 12/15/19 09:52 82 98 12/15/19 09:49 91 H 153/79 H 12/15/19 09:48 76 91 12/15/19 09:47 75 94 12/15/19 09:42 78 97 12/15/19 09:37 78 97 12/15/19 09:34 81 150/85 H 12/15/19 09:32 80 96 12/15/19 09:27 76 96 12/15/19 09:22 91 H 97 12/15/19 09:19 37.1 C 71 22 127/76 12/15/19 09:17 82 97 12/15/19 09:12 75 98 12/15/19 09:07 79 99 12/15/19 09:05 77 129/74 12/15/19 09:02 74 97 12/15/19 08:57 77 96 12/15/19 08:52 93 H 97 12/15/19 08:49 76 151/85 H 12/15/19 08:47 81 99 12/15/19 08:42 84 97 12/15/19 08:37 84 96 12/15/19 08:35 73 122/62 12/15/19 08:32 79 98 12/15/19 08:27 73 96 12/15/19 08:22 90 98 12/15/19 08:19 75 149/86 H 12/15/19 08:17 79 97 12/15/19 08:12 80 100 12/15/19 08:07 78 98 12/15/19 08:04 80 142/75 H 12/15/19 08:02 79 97 12/15/19 07:57 80 95 12/15/19 07:52 81 98 12/15/19 07:51 80 140/73 12/15/19 07:47 74 97 12/15/19 07:42 80 98 12/15/19 07:37 80 96 12/15/19 07:34 88 134/72 12/15/19 07:32 87 97 12/15/19 07:31 36.9 C 20 12/15/19 07:27 87 98 12/15/19 07:22 75 97 12/15/19 07:17 84 96 12/15/19 07:12 89 97 12/15/19 07:07 79 97 12/15/19 07:04 93 H 135/69 12/15/19 07:02 87 98 12/15/19 06:57 86 97 12/15/19 06:52 77 97 12/15/19 06:49 78 106/57 L 12/15/19 06:47 83 96 12/15/19 06:42 82 96 12/15/19 06:37 80 96 12/15/19 06:34 80 117/68 12/15/19 06:32 86 97 12/15/19 06:27 86 97 12/15/19 06:22 88 97 12/15/19 06:19 76 119/74 12/15/19 06:17 92 H 99 12/15/19 06:12 83 96 12/15/19 06:07 73 97 12/15/19 06:04 68 126/73 12/15/19 06:02 86 97 12/15/19 05:57 74 96 12/15/19 05:52 75 97 12/15/19 05:50 76 126/73 12/15/19 05:47 76 96 12/15/19 05:42 79 96 12/15/19 05:37 76 96 12/15/19 05:35 73 123/60 12/15/19 05:32 76 96 12/15/19 05:27 74 97 12/15/19 05:22 78 96 12/15/19 05:19 76 114/62 12/15/19 05:17 74 96 12/15/19 05:12 76 96 12/15/19 05:07 78 96 12/15/19 05:05 74 115/61 12/15/19 05:02 70 96 12/15/19 04:57 69 96 12/15/19 04:52 74 96 12/15/19 04:49 82 129/71 12/15/19 04:47 75 98 12/15/19 04:42 73 97 12/15/19 04:37 75 96 12/15/19 04:36 73 18 116/64 12/15/19 04:32 75 96 12/15/19 04:27 72 96 12/15/19 04:22 73 96 12/15/19 04:19 77 121/69 12/15/19 04:17 73 97 12/15/19 04:12 73 98 12/15/19 04:07 36.7 C 75 18 99 12/15/19 04:04 74 131/73 12/15/19 04:02 74 98 12/15/19 03:57 83 95 12/15/19 03:52 82 97 12/15/19 03:49 67 133/74 12/15/19 03:47 69 95 12/15/19 03:42 72 95 12/15/19 03:37 72 94 12/15/19 03:35 74 131/73 12/15/19 03:34 76 94 12/15/19 03:32 70 97 12/15/19 03:27 69 96 12/15/19 03:22 80 98 12/15/19 03:20 71 123/74 12/15/19 03:17 70 96 12/15/19 03:12 78 98 12/15/19 03:07 80 96 12/15/19 03:04 76 137/91 12/15/19 03:02 71 96 12/15/19 02:57 72 97 12/15/19 02:52 81 97 12/15/19 02:49 71 124/68 12/15/19 02:47 72 97 12/15/19 02:45 36.9 C 18 12/15/19 02:42 81 96 12/15/19 02:37 77 98 12/15/19 02:34 65 119/64 12/15/19 02:32 71 97 12/15/19 02:27 69 97 12/15/19 02:22 69 97 12/15/19 02:19 68 106/55 L 12/15/19 02:17 69 97 12/15/19 02:12 69 97 12/15/19 02:07 69 97 12/15/19 02:05 70 120/65 12/15/19 02:02 82 98 12/15/19 01:57 70 97 12/15/19 01:52 72 98 12/15/19 01:50 74 110/59 L 12/15/19 01:47 74 96 12/15/19 01:42 76 96 12/15/19 01:37 74 96 12/15/19 01:34 73 110/56 L 12/15/19 01:32 73 96 12/15/19 01:27 71 96 12/15/19 01:22 69 96 12/15/19 01:19 68 118/56 L 12/15/19 01:17 70 97 12/15/19 01:12 72 96 12/15/19 01:07 72 97 12/15/19 01:04 71 113/59 L 12/15/19 01:02 75 97 12/15/19 00:57 77 96 12/15/19 00:52 89 97 12/15/19 00:50 75 116/59 L 12/15/19 00:47 75 96 12/15/19 00:42 72 96 12/15/19 00:37 74 96 12/15/19 00:36 70 122/70 12/15/19 00:32 69 97 12/15/19 00:27 70 96 12/15/19 00:22 68 96 12/15/19 00:19 67 124/60 12/15/19 00:17 71 96 12/15/19 00:12 74 96 12/15/19 00:07 71 96 12/15/19 00:04 72 126/69 12/15/19 00:02 73 97 12/15/19 00:00 37.0 C 18 12/14/19 23:57 68 96 12/14/19 23:52 67 97 12/14/19 23:49 71 127/73 12/14/19 23:47 66 97 12/14/19 23:42 68 96 12/14/19 23:37 73 96 12/14/19 23:35 67 126/74 12/14/19 23:32 72 96 12/14/19 23:27 71 96 12/14/19 23:22 76 97 12/14/19 23:19 76 18 136/69 12/14/19 23:17 76 98 12/14/19 23:12 80 97 12/14/19 23:07 79 98 12/14/19 23:04 70 135/71 12/14/19 23:02 72 97 12/14/19 22:57 76 97 12/14/19 22:52 73 95 12/14/19 22:49 82 132/66 12/14/19 22:47 74 96 12/14/19 22:42 74 96 12/14/19 22:37 91 H 98 12/14/19 22:34 74 129/67 12/14/19 22:32 76 96 12/14/19 22:27 74 96 12/14/19 22:22 72 96
[2019-12-15] MEDS ORDERED: CEFAZOLIN 3000MG 65 ML IV ONE (10:30)
[2019-12-15] MEDS ORDERED: LACTATED RINGER'S 1,000 ML IV SCH ×3 (10:30→13:00)
[2019-12-15] MEDS ORDERED: OXYTOCIN 10 UNITS/ML VIAL ONE (10:35)
[2019-12-15] MEDS ORDERED: PHENYLEPHRINE 100MCG/ML 5ML SYR ONE (10:35)
[2019-12-15] MEDS ORDERED: ONDANSETRON INJ 2 MG/ML 2 ML VIAL ONE (10:35)
--- NOTE | 2019-12-15 10:39 | Obstetrical Progress Note ---
Date of Service December 15, 2019 Assessment & Plan Admission and Anticipated Discharge Date Admission Date: December 13, 2019 Subjective I went to patient's room to have her signed consent for primary . Patient is asking to have tubal ligation during her . I discussed with the patient that tubal sterilization is a permanent surgical procedure. There is risk of failure in the future when she might have ectopic . Ectopic can cause abdominal bleeding and may require admission to the hospital and surgery. If she changes her mind, if her kids and / or will , she will be to another man she may want to get in the future. And she may regrets. I told her today is not the correct time to decide for permanent procedure since she has been in labor for over 48 hours and she is in pain. After this over she may change her mind and want to get in the future again. we discussed about alternatives as control pills, Depo-Provera injection, implant, IUDs, Mirena for 5 years, ParaGard for 10 years of contraception. If she will have heavy. In the future will be an option of urine IUD or control pills. Despite all this discussion she decided to have tubal ligation with her C- section today. She signed a consent for primary low transverse and bilateral tubal sterilization. All questions were answered. Results & Data ([facility]) Vital Signs (Past 12 Hours) Vital Signs Temp Pulse Resp BP Pulse Ox 12/15/19 10:19 76 137/74 12/15/19 10:12 80 98 12/15/19 10:07 90 97 12/15/19 10:05 96 H 138/77 12/15/19 10:02 84 98 12/15/19 09:57 83 98 12/15/19 09:56 87 91 12/15/19 09:52 82 98 12/15/19 09:49 91 H 153/79 H 12/15/19 09:48 76 91 12/15/19 09:47 75 94 12/15/19 09:42 78 97 12/15/19 09:37 78 97 12/15/19 09:34 81 150/85 H 12/15/19 09:32 80 96 12/15/19 09:27 76 96 12/15/19 09:22 91 H 97 12/15/19 09:19 37.1 C 71 22 127/76 12/15/19 09:17 82 97 12/15/19 09:12 75 98 12/15/19 09:07 79 99 12/15/19 09:05 77 129/74 12/15/19 09:02 74 97 12/15/19 08:57 77 96 12/15/19 08:52 93 H 97 12/15/19 08:49 76 151/85 H 12/15/19 08:47 81 99 12/15/19 08:42 84 97 12/15/19 08:37 84 96 12/15/19 08:35 73 122/62 12/15/19 08:32 79 98 12/15/19 08:27 73 96 12/15/19 08:22 90 98 12/15/19 08:19 75 149/86 H 12/15/19 08:17 79 97 12/15/19 08:12 80 100 12/15/19 08:07 78 98 12/15/19 08:04 80 142/75 H 12/15/19 08:02 79 97 12/15/19 07:57 80 95 12/15/19 07:52 81 98 12/15/19 07:51 80 140/73 12/15/19 07:47 74 97 12/15/19 07:42 80 98 12/15/19 07:37 80 96 12/15/19 07:34 88 134/72 12/15/19 07:32 87 97 12/15/19 07:31 36.9 C 20 12/15/19 07:27 87 98 12/15/19 07:22 75 97 12/15/19 07:17 84 96 12/15/19 07:12 89 97 12/15/19 07:07 79 97 12/15/19 07:04 93 H 135/69 12/15/19 07:02 87 98 12/15/19 06:57 86 97 12/15/19 06:52 77 97 12/15/19 06:49 78 106/57 L 12/15/19 06:47 83 96 12/15/19 06:42 82 96 12/15/19 06:37 80 96 12/15/19 06:34 80 117/68 12/15/19 06:32 86 97 12/15/19 06:27 86 97 12/15/19 06:22 88 97 09/30/20 06:19 76 119/74 12/15/19 06:17 92 H 99 12/15/19 06:12 83 96 12/15/19 06:07 73 97 12/15/19 06:04 68 126/73 12/15/19 06:02 86 97 12/15/19 05:57 74 96 12/15/19 05:52 75 97 12/15/19 05:50 76 126/73 12/15/19 05:47 76 96 12/15/19 05:42 79 96 12/15/19 05:37 76 96 12/15/19 05:35 73 123/60 12/15/19 05:32 76 96 12/15/19 05:27 74 97 12/15/19 05:22 78 96 12/15/19 05:19 76 114/62 12/15/19 05:17 74 96 12/15/19 05:12 76 96 12/15/19 05:07 78 96 12/15/19 05:05 74 115/61 12/15/19 05:02 70 96 12/15/19 04:57 69 96 12/15/19 04:52 74 96 12/15/19 04:49 82 129/71 12/15/19 04:47 75 98 12/15/19 04:42 73 97 12/15/19 04:37 75 96 12/15/19 04:36 73 18 116/64 12/15/19 04:32 75 96 12/15/19 04:27 72 96 12/15/19 04:22 73 96 12/15/19 04:19 77 121/69 12/15/19 04:17 73 97 12/15/19 04:12 73 98 12/15/19 04:07 36.7 C 75 18 99 12/15/19 04:04 74 131/73 12/15/19 04:02 74 98 12/15/19 03:57 83 95 12/15/19 03:52 82 97 12/15/19 03:49 67 133/74 12/15/19 03:47 69 95 12/15/19 03:42 72 95 12/15/19 03:37 72 94 12/15/19 03:35 74 131/73 12/15/19 03:34 76 94 12/15/19 03:32 70 97 12/15/19 03:27 69 96 12/15/19 03:22 80 98 12/15/19 03:20 71 123/74 12/15/19 03:17 70 96 12/15/19 03:12 78 98 12/15/19 03:07 80 96 12/15/19 03:04 76 137/91 12/15/19 03:02 71 96 12/15/19 02:57 72 97 12/15/19 02:52 81 97 12/15/19 02:49 71 124/68 12/15/19 02:47 72 97 12/15/19 02:45 36.9 C 18 12/15/19 02:42 81 96 12/15/19 02:37 77 98 12/15/19 02:34 65 119/64 12/15/19 02:32 71 97 12/15/19 02:27 69 97 12/15/19 02:22 69 97 12/15/19 02:19 68 106/55 L 12/15/19 02:17 69 97 12/15/19 02:12 69 97 12/15/19 02:07 69 97 12/15/19 02:05 70 120/65 12/15/19 02:02 82 98 12/15/19 01:57 70 97 12/15/19 01:52 72 98 12/15/19 01:50 74 110/59 L 12/15/19 01:47 74 96 12/15/19 01:42 76 96 12/15/19 01:37 74 96 12/15/19 01:34 73 110/56 L 12/15/19 01:32 73 96 12/15/19 01:27 71 96 12/15/19 01:22 69 96 12/15/19 01:19 68 118/56 L 12/15/19 01:17 70 97 12/15/19 01:12 72 96 12/15/19 01:07 72 97 12/15/19 01:04 71 113/59 L 12/15/19 01:02 75 97 12/15/19 00:57 77 96 12/15/19 00:52 89 97 12/15/19 00:50 75 116/59 L 12/15/19 00:47 75 96 12/15/19 00:42 72 96 12/15/19 00:37 74 96 12/15/19 00:36 70 122/70 12/15/19 00:32 69 97 12/15/19 00:27 70 96 12/15/19 00:22 68 96 12/15/19 00:19 67 124/60 12/15/19 00:17 71 96 12/15/19 00:12 74 96 12/15/19 00:07 71 96 12/15/19 00:04 72 126/69 12/15/19 00:02 73 97 12/15/19 00:00 37.0 C 18 12/14/19 23:57 68 96 12/14/19 23:52 67 97 12/14/19 23:49 71 127/73 12/14/19 23:47 66 97 12/14/19 23:42 68 96 12/14/19 23:37 73 96 12/14/19 23:35 67 126/74 12/14/19 23:32 72 96 12/14/19 23:27 71 96 12/14/19 23:22 76 97 12/14/19 23:19 76 18 136/69 12/14/19 23:17 76 98 12/14/19 23:12 80 97 12/14/19 23:07 79 98 12/14/19 23:04 70 135/71 12/14/19 23:02 72 97 12/14/19 22:57 76 97 12/14/19 22:52 73 95 12/14/19 22:49 82 132/66 12/14/19 22:47 74 96 12/14/19 22:42 74 96 12/14/19 22:37 91 H 98 12/14/19 22:34 74 129/67
[2019-12-15] MEDS ORDERED: ePHEDrine sulfate 50 MG/ML AMP IV PRN (11:25)
[2019-12-15] MEDS ORDERED: LACTATED RINGER'S 500 ML IV PRN (11:25)
[2019-12-15] MEDS ORDERED: DiphenhydrAMINE HCL 50 MG/ML VIAL IV PRN (11:25)
[2019-12-15] MEDS ORDERED: MoRPHine SULFATE PF 1 MG/ML 10 ML AMP/VIAL INT SPINAL ONE (11:25)
[2019-12-15] MEDS ORDERED: MoRPHine SULFATE 2 MG/ML CARP IV PRN (11:25)
[2019-12-15] MEDS ORDERED: NALOXONE HCL 0.08 MG in SYRINGE 1.8 ML IV PRN (11:25)
[2019-12-15] MEDS ORDERED: ONDANSETRON INJ 2 MG/ML 2 ML VIAL IV PRN (11:25)
[2019-12-15] MEDS ORDERED: NALOXONE HCL 0.4 MG/1 ML VIAL/CARP IV PRN (11:25)
[2019-12-15] MEDS ORDERED: NALOXONE HCL 1 MG in SODIUM CHLORIDE 0.9% 1000ML 1,000 ML IV PRN (11:25)
[2019-12-15] MEDS ORDERED: NO NARCOTICS OR SEDATIVES SCH (11:30)
[2019-12-15] MEDS ORDERED: SODIUM CHLORIDE 0.9% 1000ML 1,000 ML IV SCH (11:30)
--- NOTE | 2019-12-15 11:32 | Anesthesia Procedure Note ---
Date of Service December 15, 2019 Anesthesia Post Epidural Note Vital Signs Vital Signs: Temp Pulse Resp BP Pulse Ox 37.1 C 75 22 138/76 98 12/15/19 09:19 12/15/19 10:50 12/15/19 09:19 12/15/19 10:50 12/15/19 10:12 Pain Intensity Lower Back: Pain Intensity: 7 Notes Mental Status: alert / awake / arousable and participated in evaluation Patient Amnestic to Procedure: No Nausea / Vomiting: adequately controlled Pain: adequately controlled Airway Patency, RR, SpO2: stable & adequate BP & HR: stable & adequate Hydration State: stable & adequate Neuraxial Anesthesia: was administered Anesthetic Complications: no major complications apparent and Pt Satisfied with anesthetic care Epidural: Removed without complications and With tip intact
[2019-12-15] MEDS ORDERED: ACETAMINOPHEN 1,000 MG/100 ML VIAL IV PRN (12:47)
[2019-12-15] MEDS ORDERED: DIPHTHERIA/TETANUS/PERTUSSIS 0.5 ML SYR/VIAL IM ONE (12:47)
[2019-12-15] MEDS ORDERED: HYDROCORTISONE ACETATE 25 MG SUPP PR PRN (12:47)
[2019-12-15] MEDS ORDERED: MEASLES, MUMPS & RUBELLA VIRUS VIAL SQ ONE (12:47)
[2019-12-15] MEDS ORDERED: BENZOCAINE 20% AER SPR 82.5 GM CAN EXT PRN (12:47)
[2019-12-15] MEDS ORDERED: SENNA 8.6 MG TAB PO PRN (12:47)
[2019-12-15] MEDS ORDERED: MAGNESIUM HYDROXIDE SUSP 30 ML UDC PO PRN (12:47)
--- NOTE | 2019-12-15 12:57 | Anesthesiology Progress Note ---
Date of Service December 15, 2019 Anesthesia Post Procedure Vital Signs Vital Signs: Temp Pulse Resp BP Pulse Ox 12/15/19 12:54 78 100 12/15/19 12:49 67 121/86 99 12/15/19 10:50 75 138/76 12/15/19 10:43 72 162/85 H 12/15/19 10:35 89 160/123 H 12/15/19 10:19 76 137/74 12/15/19 10:12 80 98 12/15/19 10:07 90 97 12/15/19 10:05 96 H 138/77 12/15/19 10:02 84 98 12/15/19 09:57 83 98 12/15/19 09:56 87 91 12/15/19 09:52 82 98 12/15/19 09:49 91 H 153/79 H 12/15/19 09:48 76 91 12/15/19 09:47 75 94 12/15/19 09:42 78 97 12/15/19 09:37 78 97 12/15/19 09:34 81 150/85 H 12/15/19 09:32 80 96 12/15/19 09:27 76 96 12/15/19 09:22 91 H 97 12/15/19 09:19 37.1 C 71 22 127/76 12/15/19 09:17 82 97 12/15/19 09:12 75 98 12/15/19 09:07 79 99 12/15/19 09:05 77 129/74 12/15/19 09:02 74 97 12/15/19 08:57 77 96 12/15/19 08:52 93 H 97 12/15/19 08:49 76 151/85 H 12/15/19 08:47 81 99 12/15/19 08:42 84 97 12/15/19 08:37 84 96 12/15/19 08:35 73 122/62 12/15/19 08:32 79 98 12/15/19 08:27 73 96 12/15/19 08:22 90 98 12/15/19 08:19 75 149/86 H 12/15/19 08:17 79 97 12/15/19 08:12 80 100 12/15/19 08:07 78 98 12/15/19 08:04 80 142/75 H 12/15/19 08:02 79 97 12/15/19 07:57 80 95 12/15/19 07:52 81 98 12/15/19 07:51 80 140/73 12/15/19 07:47 74 97 12/15/19 07:42 80 98 12/15/19 07:37 80 96 12/15/19 07:34 88 134/72 12/15/19 07:32 87 97 12/15/19 07:31 36.9 C 20 12/15/19 07:27 87 98 12/15/19 07:22 75 97 12/15/19 07:17 84 96 12/15/19 07:12 89 97 12/15/19 07:07 79 97 12/15/19 07:04 93 H 135/69 12/15/19 07:02 87 98 12/15/19 06:57 86 97 12/15/19 06:52 77 97 12/15/19 06:49 78 106/57 L 12/15/19 06:47 83 96 12/15/19 06:42 82 96 12/15/19 06:37 80 96 12/15/19 06:34 80 117/68 12/15/19 06:32 86 97 12/15/19 06:27 86 97 12/15/19 06:22 88 97 12/15/19 06:19 76 119/74 12/15/19 06:17 92 H 99 12/15/19 06:12 83 96 12/15/19 06:07 73 97 12/15/19 06:04 68 126/73 12/15/19 06:02 86 97 12/15/19 05:57 74 96 12/15/19 05:52 75 97 12/15/19 05:50 76 126/73 12/15/19 05:47 76 96 12/15/19 05:42 79 96 12/15/19 05:37 76 96 12/15/19 05:35 73 123/60 12/15/19 05:32 76 96 12/15/19 05:27 74 97 12/15/19 05:22 78 96 12/15/19 05:19 76 114/62 12/15/19 05:17 74 96 12/15/19 05:12 76 96 12/15/19 05:07 78 96 12/15/19 05:05 74 115/61 12/15/19 05:02 70 96 12/15/19 04:57 69 96 12/15/19 04:52 74 96 12/15/19 04:49 82 129/71 12/15/19 04:47 75 98 12/15/19 04:42 73 97 12/15/19 04:37 75 96 12/15/19 04:36 73 18 116/64 12/15/19 04:32 75 96 12/15/19 04:27 72 96 12/15/19 04:22 73 96 12/15/19 04:19 77 121/69 12/15/19 04:17 73 97 12/15/19 04:12 73 98 12/15/19 04:07 36.7 C 75 18 99 12/15/19 04:04 74 131/73 12/15/19 04:02 74 98 12/15/19 03:57 83 95 12/15/19 03:52 82 97 12/15/19 03:49 67 133/74 12/15/19 03:47 69 95 12/15/19 03:42 72 95 12/15/19 03:37 72 94 12/15/19 03:35 74 131/73 12/15/19 03:34 76 94 12/15/19 03:32 70 97 12/15/19 03:27 69 96 12/15/19 03:22 80 98 12/15/19 03:20 71 123/74 12/15/19 03:17 70 96 12/15/19 03:12 78 98 12/15/19 03:07 80 96 12/15/19 03:04 76 137/91 12/15/19 03:02 71 96 12/15/19 02:57 72 97 12/15/19 02:52 81 97 12/15/19 02:49 71 124/68 12/15/19 02:47 72 97 12/15/19 02:45 36.9 C 18 12/15/19 02:42 81 96 12/15/19 02:37 77 98 12/15/19 02:34 65 119/64 12/15/19 02:32 71 97 12/15/19 02:27 69 97 12/15/19 02:22 69 97 12/15/19 02:19 68 106/55 L 12/15/19 02:17 69 97 12/15/19 02:12 69 97 12/15/19 02:07 69 97 12/15/19 02:05 70 120/65 12/15/19 02:02 82 98 12/15/19 01:57 70 97 12/15/19 01:52 72 98 12/15/19 01:50 74 110/59 L 12/15/19 01:47 74 96 12/15/19 01:42 76 96 12/15/19 01:37 74 96 12/15/19 01:34 73 110/56 L 12/15/19 01:32 73 96 12/15/19 01:27 71 96 12/15/19 01:22 69 96 12/15/19 01:19 68 118/56 L 12/15/19 01:17 70 97 12/15/19 01:12 72 96 12/15/19 01:07 72 97 12/15/19 01:04 71 113/59 L 12/15/19 01:02 75 97 12/15/19 00:57 77 96 12/15/19 00:52 89 97 12/15/19 00:50 75 116/59 L 12/15/19 00:47 75 96 12/15/19 00:42 72 96 12/15/19 00:37 74 96 12/15/19 00:36 70 122/70 12/15/19 00:32 69 97 12/15/19 00:27 70 96 12/15/19 00:22 68 96 12/15/19 00:19 67 124/60 12/15/19 00:17 71 96 12/15/19 00:12 74 96 12/15/19 00:07 71 96 12/15/19 00:04 72 126/69 12/15/19 00:02 73 97 12/15/19 00:00 37.0 C 18 12/14/19 23:57 68 96 12/14/19 23:52 67 97 12/14/19 23:49 71 127/73 12/14/19 23:47 66 97 12/14/19 23:42 68 96 12/14/19 23:37 73 96 12/14/19 23:35 67 126/74 12/14/19 23:32 72 96 12/14/19 23:27 71 96 12/14/19 23:22 76 97 12/14/19 23:19 76 18 136/69 12/14/19 23:17 76 98 12/14/19 23:12 80 97 12/14/19 23:07 79 98 12/14/19 23:04 70 135/71 12/14/19 23:02 72 97 12/14/19 22:57 76 97 12/14/19 22:52 73 95 12/14/19 22:49 82 132/66 12/14/19 22:47 74 96 12/14/19 22:42 74 96 12/14/19 22:37 91 H 98 12/14/19 22:34 74 129/67 12/14/19 22:32 76 96 12/14/19 22:27 74 96 12/14/19 22:22 72 96 12/14/19 22:20 73 136/72 12/14/19 22:17 84 96 12/14/19 22:12 80 96 12/14/19 22:07 76 97 12/14/19 22:04 75 137/73 12/14/19 22:02 97 H 98 12/14/19 21:57 75 96 12/14/19 21:52 74 96 12/14/19 21:49 73 18 126/69 12/14/19 21:47 72 97 12/14/19 21:42 73 96 12/14/19 21:37 76 96 12/14/19 21:36 73 134/76 12/14/19 21:32 75 96 12/14/19 21:27 77 97 12/14/19 21:24 37.1 C 18 12/14/19 21:22 73 98 12/14/19 21:19 74 136/82 12/14/19 21:17 76 98 12/14/19 21:15 82 89 L 12/14/19 21:12 96 H 96 12/14/19 21:07 74 98 12/14/19 21:05 70 143/88 H 12/14/19 21:02 73 96 12/14/19 20:57 79 97 12/14/19 20:52 81 97 12/14/19 20:50 71 143/81 H 12/14/19 20:47 80 98 12/14/19 20:42 86 97 12/14/19 20:37 78 98 12/14/19 20:34 86 138/84 12/14/19 20:32 76 99 12/14/19 20:27 79 100 12/14/19 20:22 84 100 12/14/19 20:19 75 124/76 12/14/19 20:17 73 100 12/14/19 20:12 86 100 12/14/19 20:07 83 99 12/14/19 20:04 70 136/76 12/14/19 20:02 72 99 12/14/19 19:57 72 99 12/14/19 19:52 74 99 12/14/19 19:50 68 18 146/79 H 12/14/19 19:47 66 100 12/14/19 19:42 72 99 12/14/19 19:37 71 99 12/14/19 19:36 96 H 161/70 H 12/14/19 19:32 83 100 12/14/19 19:27 75 99 12/14/19 19:22 72 99 12/14/19 19:19 71 140/85 12/14/19 19:17 72 100 12/14/19 19:12 74 99 12/14/19 19:07 36.9 C 78 18 99 12/14/19 19:05 76 141/87 H 12/14/19 19:02 73 99 12/14/19 18:57 71 98 12/14/19 18:52 75 99 12/14/19 18:50 68 147/85 H 12/14/19 18:47 71 97 12/14/19 18:42 73 98 12/14/19 18:37 75 97 12/14/19 18:34 71 131/71 12/14/19 18:32 69 97 12/14/19 18:27 68 96 12/14/19 18:25 66 94 12/14/19 18:22 66 96 12/14/19 18:19 68 130/71 12/14/19 18:17 63 96 12/14/19 18:12 71 96 12/14/19 18:07 69 96 12/14/19 18:04 70 18 127/68 12/14/19 18:02 69 96 12/14/19 17:57 73 96 12/14/19 17:52 70 97 12/14/19 17:50 70 131/75 12/14/19 17:47 69 96 12/14/19 17:42 75 96 12/14/19 17:37 73 95 12/14/19 17:34 75 18 126/71 12/14/19 17:32 75 96 12/14/19 17:27 71 97 12/14/19 17:22 85 97 12/14/19 17:19 76 156/98 H 12/14/19 17:17 87 96 12/14/19 17:12 75 96 12/14/19 17:07 77 97 12/14/19 17:04 71 16 143/90 H 12/14/19 17:02 74 96 12/14/19 16:57 77 95 12/14/19 16:52 71 96 12/14/19 16:47 70 97 12/14/19 16:46 74 155/91 H 12/14/19 16:42 75 96 12/14/19 16:39 74 157/94 H 12/14/19 16:37 76 96 12/14/19 16:34 85 156/91 H 12/14/19 16:32 89 98 12/14/19 16:31 76 163/87 H 12/14/19 16:27 86 98 12/14/19 16:24 73 148/91 H 12/14/19 16:22 75 97 12/14/19 16:19 73 144/94 H 12/14/19 16:17 78 100 12/14/19 16:14 81 152/92 H 12/14/19 16:12 80 156/79 H 99 12/14/19 16:10 79 144/101 H 12/14/19 16:08 71 154/96 H 12/14/19 16:07 70 100 12/14/19 16:06 80 154/93 H 12/14/19 16:04 36.7 C 71 18 147/91 H 12/14/19 16:02 88 99 12/14/19 15:57 79 100 12/14/19 14:08 100 H 18 135/86 12/14/19 13:06 78 20 154/91 H Pain Intensity Lower Back: Pain Intensity: 7 Transfer of Care Handoff Completed per policy Notes Mental Status: alert / awake / arousable and participated in evaluation Patient Amnestic to Procedure: No Nausea / Vomiting: adequately controlled Pain: adequately controlled Airway Patency, RR, SpO2: stable & adequate BP & HR: stable & adequate Hydration State: stable & adequate Neuraxial Anesthesia: was administered and sensory block is resolving Anesthetic Complications: no major complications apparent and Pt Satisfied with anesthetic care
[2019-12-15] MEDS: OXYTOCIN 30 UNITS in LACTATED RINGER'S 1,000 ML IV SCH ×2 (14:12→22:26)
[2019-12-15] MEDS: SIMETHICONE 80 MG CHEW PO SCH ×3 (14:40→21:08)
[2019-12-15] MEDS ORDERED: OXYTOCIN 10 UNITS/ML VIAL IM ONE (15:33)
[2019-12-15] MEDS ORDERED: CEFAZOLIN 3,000 MG in DEXTROSE 5% 50 ML IV STA (19:30)
--- NOTE | 2019-12-15 20:16 | Operative Report (OR) ---
DATE OF OPERATION: 12/15/2019 PREOPERATIVE DIAGNOSES: The patient is a 29-year-old G2, P1-0-0-1 at 39 weeks and 4 days of gestation admitted for induction of labor since December 12, 1) history of type 2 diabetes, on insulin pump, 2) chronic hypertension, 3) morbid obesity. 4) Failure to progress 5) Desire for permanent surgical sterilizations, declines non surgical reversible options. POSTOPERATIVE DIAGNOSES: The patient is a 29-year-old G2, P1-0-0-1 at 39 weeks and 4 days of gestation admitted for induction of labor since December 12, 1) history of type 2 diabetes, on insulin pump, 2) chronic hypertension, 3) morbid obesity. 4) Failure to progress 5) Desire for permanent surgical sterilizations, declines non surgical reversible options. 6) Direct Occiput Posterior position PROCEDURE: Primary low transverse and Pfannenstiel skin incision and bilateral tubal ligation with Rosana method. SURGEON: Priti Kramer MD FIBERGLASS TUBE MOLDER: Dr. Gibson. ESTIMATED BLOOD LOSS: 650 mL. FLUIDS: 1200 mL of lactated ringer. DRAINS: Bermeo catheter drained 300 mL of clear urine. ANESTHESIA: Spinal, Dr. Dawn. COMPLICATIONS: None. FINDINGS: Baby was a viable female delivered in cephalic presentation in occiput posterior position at 11:38 a.m. Apgars were 9/9, weight was 3720 grams. Maternal findings, normal uterus, fallopian tubes and ovaries. DESCRIPTION OF PROCEDURE: The patient was taken to the operating room where spinal anesthesia was given without difficulty. She was placed in dorsal supine position with a leftward tilt. She was prepped and draped in usual sterile fashion. A Pfannenstiel skin incision was made and carried through to the underlying layer of fascia with the Bovie. Fascia was incised in the midline and incision was extended laterally with the help of Lee scissors and upper aspect of the fascial incision was grasped with 2 Yannick clamps, elevated, underlying rectus muscles were dissected off sharply with Lee scissors. Lower aspect of the fascial incision was then grasped with 2 Yannick clamps, elevated, underlying rectus muscles were dissected off sharply with Lee scissors. Rectus muscles were in the midline. Peritoneum was entered bluntly with fingers. Peritoneal incision was extended superiorly and inferiorly with good visualization of the bladder and Smith abdominal wall retractor was placed and abdominal wall was retracted. Vesicouterine peritoneum was identified, grasped with pickups and entered sharply with Metzenbaum scissors. Bladder flap was created digitally and bladder blade was reinserted. Lower uterine segment was incised in transverse fashion. Membranes were ruptured. Clear fluid was obtained. Baby's face was right at the incision looking up in the occiput posterior position. Head was delivered without difficulty. Shoulders and baby came out easily. Mouth and nose were suctioned. Cord was clamped x2 and cut at 1 minute delay and baby was handed to waiting pediatric team, Dr. Nava. Placenta was delivered manually as intact and complete. Uterus was exteriorized, cleared off all clots and debris. Uterine incision was repaired with 0 Vicryl in a running locked fashion and a second imbricating layer was placed with 0 Vicryl in a running locked fashion. There was oozing in the middle of the incision on the lower uterine segment. It was controlled with [id number] stitches x2. Excellent hemostasis was achieved and then posterior cul-de-sac was irrigated and then a posterior uterus was normal. The right fallopian tube was held with [place] clamps and the mesosalpinx was entered with 2-0 plain catgut from avascular site and then a loop was made around the Jessy clamps and tied with suture and then another tie was placed on the first tie and about 3 cm length of fallopian tube was excised above the loop and sent to the pathology. The base was hemostatic. Attention was turned to the left fallopian tube, which was held with Jessy clamps. The mesosalpinx was entered from the avascular site with a plain catgut and then again a loop of tube was made around the Jessy clamps and tied with a suture and then another tie was placed under the first tie and then again about 3 cm length of fallopian tube was excised on the loop, sent to pathology. The base of the tube was hemostatic. The uterine incision was checked to be again hemostatic, returned to the abdomen. The pelvis was irrigated with warm normal saline and suctioned. Uterine incision was checked to be hemostatic again. Fallopian tubes were also checked to be hemostatic and then parietal peritoneum was reapproximated with 3-0 Vicryl in a running fashion and the rectus fascia was reapproximated with the same suture in a running fashion. Excellent hemostasis was achieved. The rectus fascia was closed with #1 Vicryl in a running fashion. Subcuticular fat tissue was brought together with 2-0 chromic in a running fashion. Skin was closed with 4-0 Monocryl in a subcuticular fashion and the incision was covered with Steri-Strips and LIBRA dressing. Mom and baby tolerated the procedure well. Sponge, lap, needle count was correct x3. No complications happened. I was present during whole procedure with Dr. Gibson. The patient received 3 grams of cefazolin before surgery and 500 mg of azithromycin during surgery. I attest to the content of the Intraoperative Record and any orders documented therein. Any exceptions are noted below. MTDD
[2019-12-15] MEDS: DOCUSATE SODIUM 100 MG CAP PO SCH (21:08)
[2019-12-15] MEDS: KETOROLAC 30 MG/ML VIAL IV PRN (22:44)
[2019-12-16] MEDS: miSOPROStoL 50 MCG TAB PO SCH ×2 (02:45→08:27)
[2019-12-16] MEDS: KETOROLAC 30 MG/ML VIAL IV PRN (05:02)
[2019-12-16] MEDS ORDERED: PROMETHAZINE HCL 25 MG in SODIUM CHLORIDE 0.9% 50 ML IV PRN (05:25)
[2019-12-16] MEDS ORDERED: DC INTRASPINAL MORPHINE ONE (05:25)
[2019-12-16] MEDS ORDERED: DiphenhydrAMINE HCL 50 MG/ML VIAL IV PRN (05:25)
[2019-12-16] MEDS ORDERED: ONDANSETRON INJ 2 MG/ML 2 ML VIAL IV PRN (05:25)
[2019-12-16] MEDS ORDERED: SUPERCREAM 0.870% 15 GM JAR EXT PRN (05:25)
[2019-12-16] MEDS ORDERED: MEPERIDINE HCL 50 MG/ML CARP IV PRN (05:25)
[2019-12-16 06:36] LABS: Basophils # (auto) 0.01 K/uL (0-0.2); Basophils % (auto) 0.1 %; Eosinophils % (auto) 0.9 %; Hematocrit (blood only) 31.6 % (37-47); Hemoglobin 10.4 g/dL (12.0-16.0); Immature Granulocytes # (auto) 0.06 K/uL (0.00-0.02); Immature Granulocytes % (auto) 0.5 %; Lymphocytes # (auto) 1.62 K/uL (1.2-3.4); Lymphocytes % (auto) 14.1 %; Mean Corpuscular Hemoglobin 26.2 pg (25-34); Mean Corpuscular Hgb Conc 32.9 g/dL (32-36); Mean Corpuscular Volume 79.6 fL (80-100); Monocytes # (auto) 0.72 K/uL (0.11-0.59); Monocytes % (auto) 6.3 %; Neutrophils # (auto) 8.95 K/uL (1.4-6.5); Neutrophils % (auto) 78.1 %; Platelet Count 169 K/uL (130-400); RDW Coefficient of Variation 16.4 % (11.5-14.5); RDW Standard Deviation 47.8 fL (36.4-46.3); Red Blood Count 3.97 M/uL (4.2-5.4); White Blood Count 11.46 K/uL (4.8-10.8)
[2019-12-16] MEDS ORDERED: AMOXICILLIN/CLAVULANATE 875 MG TAB PO SCH (08:00)
[2019-12-16] MEDS ORDERED: METFORMIN HCL 500 MG TAB PO SCH (08:00)
[2019-12-16] MEDS: SIMETHICONE 80 MG CHEW PO SCH ×4 (08:33→20:15)
[2019-12-16] MEDS: FERROUS SULFATE 325 MG TAB PO SCH (08:33)
[2019-12-16] MEDS: DOCUSATE SODIUM 100 MG CAP PO SCH ×2 (08:33→20:15)
[2019-12-16] MEDS: PRENATAL VITAMIN 1 TAB PO SCH (08:33)
[2019-12-16] MEDS: ENOXAPARIN INJ 40 MG/0.4 ML SYR SQ SCH (08:37)
[2019-12-16] MEDS ORDERED: LABETALOL HCL 100 MG TAB PO SCH (09:00)
--- NOTE | 2019-12-16 10:05 | Surgery Progress Note ---
Date of Service December 16, 2019 Assessment & Plan Admission and Anticipated Discharge Date Admission Date: December 13, 2019 Subjective POD#1 doing well out of bed passing gas tolerating diet Physical Exam Constitutional: WD/WN, vitals as above comfortable incision intact some increased bdry blood noted on dressing not expanding abdomen soft and non-tender no edema neg Gamal's Results & Data ([facility]) Vital Signs (Past 12 Hours) Vital Signs Temp Pulse Pulse Resp BP Pulse Ox 12/16/19 07:50 36.8 C 86 18 129/85 97 12/16/19 05:00 37.1 C 87 18 131/85 98 12/16/19 04:40 15 96 12/16/19 03:40 16 97 12/16/19 02:40 16 95 12/16/19 01:40 15 97 12/16/19 00:40 16 96 12/15/19 23:40 37.2 C 89 17 112/73 98 12/15/19 22:33 20 96 Laboratory Results 12/13/19 12/13/19 12/15/19 09:43 14:49 09:07 WBC 10.44 11.83 H RBC 4.26 4.48 Hgb 11.2 L 11.9 L Hct 33.9 L 35.4 L MCV 79.6 L 79.0 L MCH 26.3 26.6 MCHC 33.0 33.6 RDW Std Deviation 47.8 H 46.8 H RDW Coeff of Maia 16.6 H 16.2 H Plt Count 161 162 MPV 9.1 9.0 Immature Gran % (Auto) 0.3 Neut % (Auto) 81.9 Lymph % (Auto) 12.8 [place] % (Auto) 4.1 Eos % (Auto) 0.8 Baso % (Auto) 0.1 Neut # (Auto) 9.67 H Lymph # (Auto) 1.52 [place] # (Auto) 0.49 Eos # (Auto) 0.10 Baso # (Auto) 0.01 Immature Gran # (Auto) 0.04 H Sodium Potassium Chloride Carbon Dioxide Anion Gap BUN Creatinine Est Cr Clr Drug Dosing Est GFR ( Amer) Est GFR (Non-Af Amer) BUN/Creatinine Ratio Glucose POC Glucose 103 H Calcium Total Bilirubin AST ALT Alkaline Phosphatase Total Protein Albumin Globulin Albumin/Globulin Ratio Blood Type Antibody Screen Antibody Identification Antigen Identification 0912/15/19 12/16/19 09:07 09:07 06:20 WBC 11.46 H RBC 3.97 L Hgb 10.4 L Hct 31.6 L MCV 79.6 L MCH 26.2 MCHC 32.9 RDW Std Deviation 47.8 H RDW Coeff of Maia 16.4 H Plt Count 169 MPV 9.0 Immature Gran % (Auto) 0.5 Neut % (Auto) 78.1 Lymph % (Auto) 14.1 [place] % (Auto) 6.3 Eos % (Auto) 0.9 Baso % (Auto) 0.1 Neut # (Auto) 8.95 H Lymph # (Auto) 1.62 [place] # (Auto) 0.72 H Eos # (Auto) 0.10 Baso # (Auto) 0.01 Immature Gran # (Auto) 0.06 H Sodium 133 L Potassium 4.0 Chloride 103 Carbon Dioxide 21 Anion Gap 10.0 BUN 7 Creatinine 0.63 Est Cr Clr Drug Dosing 196.1 Est GFR ( Amer) 139.5 Est GFR (Non-Af Amer) 120.4 BUN/Creatinine Ratio 10.7 Glucose 91 POC Glucose Calcium 9.0 Total Bilirubin 0.8 AST 18 ALT 18 Alkaline Phosphatase 105 Total Protein 6.3 L Albumin 2.2 L Globulin 4.1 H Albumin/Globulin Ratio 0.5 L Blood Type A Negative Antibody Screen POSITIVE A Antibody Identification Anti-D due to RhIg Antigen Identification K Antigen - NEGATIVE
[2019-12-16] MEDS: IBUPROFEN 600 MG TAB PO PRN ×3 (10:24→20:16)
[2019-12-16] MEDS: OXYCODONE/ACETAMINOPHEN 5mg/325mg TAB PO PRN ×3 (10:24→20:15)
[2019-12-16] MEDS ORDERED: bisacodyL 5 MG TABEC PO SCH (20:00)
[2019-12-16] MEDS: LABETALOL HCL 100 MG TAB PO SCH (20:16)
[2019-12-17] MEDS: IBUPROFEN 600 MG TAB PO PRN ×3 (00:17→11:08)
[2019-12-17] MEDS: OXYCODONE/ACETAMINOPHEN 5mg/325mg TAB PO PRN ×3 (00:18→11:09)
[2019-12-17 06:50] LABS: Hematocrit (blood only) 27.9 % (37-47); Hemoglobin 9.2 g/dL (12.0-16.0)
[2019-12-17] MEDS: FERROUS SULFATE 325 MG TAB PO SCH (08:25)
[2019-12-17] MEDS: ENOXAPARIN INJ 40 MG/0.4 ML SYR SQ SCH (08:25)
[2019-12-17] MEDS: SIMETHICONE 80 MG CHEW PO SCH (08:25)
[2019-12-17] MEDS: DOCUSATE SODIUM 100 MG CAP PO SCH (08:25)
[2019-12-17] MEDS: PRENATAL VITAMIN 1 TAB PO SCH (08:25)
[2019-12-17] MEDS: LABETALOL HCL 100 MG TAB PO SCH (08:30)
--- NOTE | 2019-12-17 09:48 | Obstetrical Progress Note ---
Date of Service December 17, 2019 Assessment & Plan Admission and Anticipated Discharge Date Admission Date: December 13, 2019 Review of Systems Review of Systems: All systems reviewed & are unremarkable except as noted in HPI & below Physical Exam Constitutional: WD/WN, vitals as above well developed and well nourished Eyes: PERRL, conjunctivae normal, anicteric sclerae ENMT: external ear and nose normal, oropharynx normal Neck: trachea midline, no thyromegaly Respiratory: normal respiratory effort, lungs clear to auscultation Auscultation: no crackles, no rales and no wheezes Cardiovascular: RRR, no murmur, no edema Chest (Breasts): normal inspection/palpation of breasts Gastrointestinal (Abdomen): normal bowel sounds, soft, nontender, no hepatosplenomegaly Uterus is below umbilicus Musculoskeletal: no cyanosis or clubbing, extremities motor strength 5/5 Skin: no rashes, warm and dry + incision (Clean,dry and intact) Neurologic: patellar DTR's 2+ bilat, sensation intact Psychiatric: A+Ox3, euthymic affect Genitourinary: normal external appearance Lymphatic: no cervical or axillary lymphadenopathy Results & Data ([facility]) Vital Signs (Past 12 Hours) Vital Signs Temp Pulse Resp BP Pulse Ox 12/17/19 07:57 36.6 C 85 18 126/83 98 12/16/19 23:15 36.5 C 89 18 123/84 94
--- NOTE | 2019-12-17 09:52 | Obstetrical Progress Note ---
Date of Service December 17, 2019 Assessment & Plan (1) delivery delivered: c/sec day #3 pt doing well d/c home with instrcutions rx for Lovenox Mobility discussed with VTE risk Subjective Ambulation: ambulating normally Voiding: no voiding problems Passing Gas:: Yes Diet Tolerance:: clear liquids Lochia:: Small Feeding Type:: breast feeding Review of Systems All systems reviewed & are unremarkable except as noted in HPI & below Physical Exam Constitutional WD/WN, vitals as above well developed and well nourished Eyes PERRL, conjunctivae normal, anicteric sclerae ENMT external ear and nose normal, oropharynx normal Neck trachea midline, no thyromegaly Respiratory normal respiratory effort, lungs clear to auscultation Cardiovascular RRR, no murmur, no edema Chest (Breasts) normal inspection/palpation of breasts Gastrointestinal (Abdomen) normal bowel sounds, soft, nontender, no hepatosplenomegaly Musculoskeletal no cyanosis or clubbing, extremities motor strength 5/5 Skin no rashes, warm and dry + incision (Clean,dry and intact) Neurologic patellar DTR's 2+ bilat, sensation intact Psychiatric A+Ox3, euthymic affect Genitourinary normal external appearance Lymphatic no cervical or axillary lymphadenopathy Results & Data ([facility]) Vital Signs (Past 12 Hours) Vital Signs Temp Pulse Resp BP Pulse Ox 12/17/19 07:57 36.6 C 85 18 126/83 98 12/16/19 23:15 36.5 C 89 18 123/84 94
[2019-12-17] MEDS ORDERED: bisacodyL 10 MG SUPP PR PRN (12:47)
--- NOTE | 2019-12-19 13:53 | Anesthesiology Progress Note ---
Date of Service December 19, 2019 Assessment & Plan Admission and Anticipated Discharge Date Admission Date: December 13, 2019 pt tolerated epidural blood patch well. Subjective pt had a csection on 12/13. she developed a headache two days later prior to d/c. Pt tried to manage conservatively, but sought treatment today. Pt has a frontal occipital headache that is made worse by standing up straight and quick head movements. pt has nauesea. no vomiting. no photophobia. CT head was negative. Pt met the criteria for a post dural puncture headache. After reviewing risk/benefits, pt opted for an epidural blood patch. Pt was seated on side of bed. Time out was done. Sterile prep/drape/gloves/mask used. 1% lidocaine infiltrated. 18 gauge touey needle advanced to RUSTAM at 9cm. Pt left ac was preped and 20 cc of blood were drawn in a sterile fashion by Ang shrestha CRNA. The blood was then injected into the epidural space by me. Pt was laid flat on her back. ER staff were instructed to sit her up in one hour to see if improvement. Care returned to ER staff. Review of Systems Review of Systems: All systems reviewed & are unremarkable except as noted in Subjective Constitutional: no fever and no chills Respiratory: no cough and no dyspnea Cardiovascular: no chest pain and no dyspnea on exertion Physical Exam Vital Signs: Last Vital Signs Temp 36.6 C 12/17/19 14:10 Pulse 85 12/17/19 14:10 Resp 18 12/17/19 14:10 BP 126/83 12/17/19 14:10 Pulse Ox 98 12/17/19 14:10 Constitutional: + morbidly obese ENMT: Mouth: no TMJ abnormality and no dentition abnormality Thyromental Distance: > or= 3.5 Finger Breadths Mallampati Class: II Neck: neck extension not limited Respiratory: normal respiratory effort; no respiratory distress Auscultation: lungs clear to auscultation bilaterally Cardiovascular: Rate/Rhythm: regular rate and regular rhythm Neurologic: moves all extremities Psychiatric: Orientation: alert and oriented x 3
== END 2019-12-17 14:10 | disposition home or self-care (01) | DRG 783 ==
LOC: 4S1 07:22 → 4S2 12-15 15:30
PROC: M.PPTLD (2019-12-15 10:55)